=== PATIENT | female | born 1960 | race Caucasian/White ===

== ENCOUNTER 2018-09-21 11:57 | Outpatient (REF) | payer BC, SELFPAY ==
[2018-09-21 21:00] LABS: Cholesterol 220 mg/dL (50-200); HDL Cholesterol 84 mg/dL (40-60); LDL CHOLESTEROL 116 mg/dL (<100); Triglyceride 55 mg/dL (30-150)
[2018-09-25 10:40] LABS: Hepatitis C Ab w Rflx HCV PCR Negative (NEGAT)
== END 2018-09-21 12:17 ==
LOC: NCHCN 11:57
PROVIDERS: Visit Provider Nurse Practitioner Family
DX: Z00.00 Encounter for general adult medical examination without abnormal findings (principal); Z13.220 Encounter for screening for lipoid disorders; Z11.59 Encounter for screening for other viral diseases
CPT/HCPCS: 80061; 83721; 86803

== ENCOUNTER 2022-12-29 11:07 | Outpatient (REF) | payer BC, SELFPAY ==
--- NOTE | 2022-12-29 10:15 | PAPFT_PTH ---
PATIENT: Melissa Jacobson LOC: [facility]#:[id number] AGE/SX: 62/F ROOM: RE12/29/[address]: Daly Briones : 1960 BED: DIS: 12/29/2022 SPEC #: [id number] RECD: 12/29/22 17:52 STATUS: FAWAD REQ #: [id number] CORINNE: 12/29/22 10:[address]: Daly Briones DEPT: [facility] Cytology RECD BY: Blanca Nuñez ENTERED: 12/29/22 17:52 SP TYPE: PAPFT OTHR DR: Unknown,Unknown Tissues: 1 - CX/ENDOCX FOR PAP SMEARS Procedures: PAP THIN PREP/[facility] Screening HPV DNA PROBE Comments: [id number] (CHLAMYDIA/GC)
[2022-12-29 15:04] LABS: HCT 42.7 % (36.0-46.0); HGB 13.9 g/dL (11.2-15.7); MCH 29.6 pg (27.0-33.0); MCHC 32.6 % (32.0-36.0); MCV 91 fL (80-95); MPV 10.3 fL (8.0-11.0); Platelet Count 304 10^3/uL (130-400); RDW 12.7 % (11.7-14.6); RDW-SD 42.3 fL; WBC 5.59 10^3/uL (4.4-10.8)
[2022-12-29 15:59] LABS: ALT 31 U/L (14-59); AST 19 U/L (15-37); Albumin 4.3 g/dL (3.4-5.0); Alkaline Phosphatase 69 U/L (46-116); Anion Gap 9.2 mmol/L (3-11); BUN 20 mg/dL (7-18); Bilirubin, Total 0.5 mg/dL (0.2-1.0); CO2 26.8 mmol/L (21.0-32.0); CREATININE 0.8 mg/dL (0.55-1.02); Calcium 9.2 mg/dL (8.5-10.1); Calculated LDL 126 mg/dL (<100); Chloride 105 mmol/L (98-107); Cholesterol 206 mg/dL (<200); Estimated GFR 83.78 (mL/min/1.73m2); Glucose 100 mg/dL (74-106); HDL Cholesterol 72 mg/dL (40-60); Potassium 4.5 mmol/L (3.5-5.1); Sodium 141 mmol/L (136-145); Total Protein 7.3 g/dL (6.4-8.2); Triglyceride 43 mg/dL (<150)
[2022-12-30 10:39] LABS: Hepatitis C Ab w Rflx HCV PCR Negative (Negative)
[2022-12-30 10:50] LABS: HIV-1/2 Ag & Ab Screen Negative (Negative)
[2022-12-30 14:30] LABS: Chlamydia Result Negative (Negative); GC Result Negative (Negative)
== END 2022-12-29 11:08 | disposition home or self-care (01) ==
LOC: NCHCN 11:07
PROVIDERS: Visit Provider Nurse Practitioner Family
DX: Z11.51 Encounter for screening for human papillomavirus (HPV); Z00.00 Encounter for general adult medical examination without abnormal findings; Z01.419 Encounter for gynecological examination (general) (routine) without abnormal findings
CPT/HCPCS: 80053; 80061; 85027; 86803; 87389; 87491; 87591; 88142; 87624

== ENCOUNTER 2023-01-07 00:32 | Outpatient (CLI) | payer BC, SELFPAY ==
--- NOTE | 2023-01-07 13:38 | DI.DEXA_ITS ---
Exam(s) XR DEXA BONE DENSITY W/WO BENNY EXAM: XR DEXA BONE DENSITY W/WO BENNY CLINICAL HISTORY: SCREENING FOR OSTEOPOROSIS; PERSONAL H/O BREAST CA, Z85.3 TECHNIQUE: HoloBeMo Horizon C densitometer analysis of left hip, lumbar spine and left forearm. Lat eral survey image of the thoracic and lumbar spine. COMPARISON: No exams were available for comparison FINDINGS: Lateral view of the thoracic and lumbar spine shows no evidence of compression fractures. Bone mineral density measurements of the lumbar spine correspond to a total T-score of -1.9, in the osteopenic range Bone mineral density measurements of the left hip correspond to a total T-score of -2.1 . The femora l neck T-score is -2.8, in the osteoporotic range.. Theright forearm bone mineral density measurements correspond to a T-score of the distal 3rd of -0.6 , in the range.. IMPRESSION: Osteopenia of the lumbar spine. Osteoporosis of the femoral neck. Normal bone mineral density of fo rearm.
== END 2023-01-07 00:52 ==
PROVIDERS: Visit Provider Nurse Practitioner Family
DX: Z85.3 Personal history of malignant neoplasm of breast (principal); Z13.820 Encounter for screening for osteoporosis; M81.8 Other osteoporosis without current pathological fracture
CPT/HCPCS: 77080

== ENCOUNTER 2024-01-06 16:51 | Outpatient (REF) | payer BC, SELFPAY ==
[2024-01-06 15:00] LABS: HCT 40.5 % (36.0-46.0); HGB 13.3 g/dL (11.2-15.7); MCH 29.2 pg (27.0-33.0); MCHC 32.8 % (32.0-36.0); MCV 89 fL (80-95); MPV 10.7 fL (8.0-11.0); Platelet Count 291 10^3/uL (130-400); RBC 4.55 10^6/uL (3.93-5.22); RDW 12.5 % (11.7-14.6); RDW-SD 41.1 fL; WBC 4.31 10^3/uL (4.4-10.8)
[2024-01-06 19:22] LABS: ALT 29 U/L (14-59); AST 19 U/L (15-37); Albumin 4.3 g/dL (3.4-5.0); Alkaline Phosphatase 69 U/L (46-116); Anion Gap 11.4 mmol/L (3-11); BUN 17 mg/dL (7-18); Bilirubin, Total 0.47 mg/dL (0.2-1.0); CO2 24.6 mmol/L (21.0-32.0); CREATININE 0.8 mg/dL (0.55-1.02); Calcium 9.5 mg/dL (8.5-10.1); Calculated LDL 135 mg/dL (<100); Chloride 104 mmol/L (98-107); Cholesterol 222 mg/dL (<200); Estimated GFR 83.26 (mL/min/1.73m2); Glucose 101 mg/dL (74-106); HDL Cholesterol 76 mg/dL (40-60); Potassium 4.4 mmol/L (3.5-5.1); Sodium 140 mmol/L (136-145); Total Protein 7.5 g/dL (6.4-8.2); Triglyceride 59 mg/dL (<150)
== END 2024-01-06 16:52 | disposition home or self-care (01) ==
LOC: NCHCN 16:51
PROVIDERS: PCP Nurse Practitioner Family; Visit Provider Nurse Practitioner Family
DX: Z00.00 Encounter for general adult medical examination without abnormal findings (principal); Z13.220 Encounter for screening for lipoid disorders; Z13.228 Encounter for screening for other metabolic disorders; Z13.0 Encounter for screening for diseases of the blood and blood-forming organs and certain disorders involving the immune mechanism
CPT/HCPCS: 80053; 80061; 85027

== ENCOUNTER 2025-01-17 16:19 | Outpatient (REF) | payer BC, SELFPAY ==
[2025-01-17 20:44] LABS: HCT 41.2 % (36.0-46.0); HGB 13.2 g/dL (11.2-15.7); MCH 29.3 pg (27.0-33.0); MCHC 32.0 % (32.0-36.0); MCV 92 fL (80-95); MPV 10.5 fL (8.0-11.0); Platelet Count 336 10^3/uL (130-400); RBC 4.50 10^6/uL (3.93-5.22); RDW 12.5 % (11.7-14.6); RDW-SD 42.1 fL; WBC 5.95 10^3/uL (4.4-10.8)
[2025-01-17 20:56] LABS: ALT 24 U/L (14-59); AST 15 U/L (15-37); Albumin 4.2 g/dL (3.4-5.0); Alkaline Phosphatase 70 U/L (46-116); Anion Gap 8.2 mmol/L (3-11); BUN 19 mg/dL (7-18); Bilirubin, Total 0.4 mg/dL (0.2-1.0); CO2 29.8 mmol/L (21.0-32.0); Calcium 9.3 mg/dL (8.5-10.1); Calculated LDL 153 mg/dL (<100); Chloride 105 mmol/L (98-107); Cholesterol 248 mg/dL (<200); Estimated GFR 71.83 (mL/min/1.73m2); Glucose 102 mg/dL (74-106); HDL Cholesterol 70 mg/dL (>or=50); Potassium 4.3 mmol/L (3.5-5.1); Sodium 143 mmol/L (136-145); Total Protein 7.5 g/dL (6.4-8.2); Triglyceride 125 mg/dL (<150)
== END 2025-01-17 16:20 | disposition home or self-care (01) ==
LOC: NCHCN 16:19
PROVIDERS: PCP Nurse Practitioner Family; Visit Provider Nurse Practitioner Family
DX: Z00.00 Encounter for general adult medical examination without abnormal findings (principal)
CPT/HCPCS: 80053; 80061; 85027

== ENCOUNTER 2025-01-29 15:18 | Outpatient (CLI) | payer BC, SELFPAY ==
--- NOTE | 2025-01-29 | DI.CT_ITS ---
Exam(s) CT ABDOMEN PELVIS W EXAM: CT ABDOMEN PELVIS W CLINICAL HISTORY: PALPABLE ABD MASS,R19.00. TECHNIQUE: Imaging Protocol: Axial computed tomography images with coronal and sagittal reformatted images were created and reviewed CONTRAST MATERIAL: Intravenous: Omnipaque-350 75cc Oral: Yes. Oral contrast was also administered for bowel opacification. COMPARISON: CT CHEST WITH CONTRAST from 12/16/2008 FINDINGS: VISUALIZED LUNG BASES: No nodules nor pleural effusions evident. ABDOMEN: There is a small hiatal hernia which was not evident on chest CT scan of 2008. LIVER: There is a solitary subcapsular benign-appearing hypodensity in the right hepatic lobe which measures 7 x 5 mm. This is either a cyst or small subcapsular hemangioma. There is also a tiny 2 millimeters cyst slightly higher up in the right hepatic lobe. There are no other focal liver findings. There are no dilated intrahepatic ducts. GALLBLADDER/BILIARY: No obvious gallbladder pathology. CBD is not dilated. PANCREAS: No evidence of pancreatic mass nor dilatation of the pancreatic duct. SPLEEN: Spleen is not enlarged. No obvious intrasplenic lesions. Small splenule medial to the spleen is unchanged. Splenic and portal veins are patent. ADRENALS: There are no significant adrenal masses. KIDNEYS:Left kidney unremarkable. There is a small benign cyst in the right kidney measuring 8 mm. No solid renal masses. No calculi nor hydronephrosis.. ABDOMINAL AORTA: Abdominal aorta is not enlarged. LYMPH NODES:There is no retroperitoneal nor paraaortic adenopathy. However, there is abnormal mesenteric density on the right side, to the right of the aortic bifurcation and extending over 4 cm distance in width. There are no similar appearing mesenteric masses elsewhere in the abdomen and pelvis. ABDOMINAL WALL: Small fat only containing umbilical hernia noted GI: There is no evidence of bowel obstruction, free air, nor abscess. PELVIS: GI: No evidence of acute appendicitis.There is extensive sigmoid diverticulosis. There is no obvious evidence of acute diverticulitis LYMPH NODES: There is no intrapelvic nor inguinal adenopathy. REPRODUCTIVE: Uterus is anteverted and upper normal size. There are some prominent veins the on the left side of the uterus which drain into left gonadal vein. May indicate an element of pelvic congestion syndrome. A lesser amount of similar veins are noted on the right side. There is no free fluid in the pelvis. URINARY BLADDER: No calculi nor obvious masses evident OSSEOUS: Mild degenerative anterolisthesis of L4 upon L5. No significant osseous lesions. IMPRESSION: 1. There is an abnormal right-sided noncalcified mesenteric-omental density-mass which measures approximately 4 cm wide by 3 cm craniocaudal by 2.5 cm AP. This is just below the right-side of the transverse colon and to the right of the aortic bifurcation. There are no other mesenteric masses nor other lymphadenopathy in the abdomen and pelvis. There is no splenomegaly. 2. Extensive sigmoid diverticulosis without evidence of obvious acute diverticulitis. 3. Left-sided dilated periuterine veins which are consistent with an element of pelvic congestion syndrome. These drain into the left gonadal vein which itself drains into the patent pre aortic left renal vein. None of these veins are thrombosed and there is no evidence of thrombosis nor extrinsic compression or upon the left renal vein. 4. Other findings as above. RADIATION DOSE DELIVERED: 459.08mGy.cm Total DLP DATA REPOSITORY: All CT scans at this facility are submitted to the National Radiology Data Registry (NRDR) Dose Index Registry (DIR) with the [employer] ([employer]). RADIATION OPTIMIZATION: All CT scans at this facility use at least one of these dose optimization techniques: automated exposure control; mA and/or kV adjustment per patient size (includes targeted exams where dose is matched to clinical indication); or iterative reconstruction.
[2025-01-29] MEDS: Barium Sulfate 2% W/V-Creamy Vanilla Smoothie 450 ML BTL PO (12:03)
[2025-01-29] MEDS: Barium Sulfate 2% W/V-Berry Smoothie 450 ML BTL PO (12:04)
[2025-01-29] MEDS: Omnipaque 350 MG/ML 100 ML BTL IJ (14:20)
[2025-01-29] MEDS: Normal Saline - Diluent 50 ML VIAL IJ (14:22)
[2025-01-29] MEDS: Normal Saline Flush 10 ML SYR IVP (14:22)
== END 2025-01-29 15:38 ==
PROVIDERS: PCP Nurse Practitioner Family; Visit Provider Nurse Practitioner Family
DX: K57.30 Diverticulosis of large intestine without perforation or abscess without bleeding (principal)
CPT/HCPCS: 74177; J3490